=== PATIENT | female | born 1950 | race Caucasian/White ===

== ENCOUNTER 2017-06-16 16:48 | Emergency (ER) | payer OTHER ==
[~2017-06-16] VITALS: Ht 167.6 cm; Wt 70.3 kg
[~2017-06-16 16:48] MED LIST: FAMO20TA41 PO; URSO300C7 PO
--- NOTE | 2017-06-16 17:57 | NUR ---
Patient discharged to home in stable conditon. Written and verbal after care instructions given to patient. Patient verbalizes understanding of instructions. Patient wants tylenol prescription, Dr Gaitan notified.
== END 2017-06-16 18:46 | disposition home or self-care (01) ==
LOC: ER 16:50
DX: J11.1 Influenza due to unidentified influenza virus with other respiratory manifestations (principal); Z88.0 Allergy status to penicillin; Z88.5 Allergy status to narcotic agent; G43.909 Migraine, unspecified, not intractable, without status migrainosus
CPT/HCPCS: 99283; A4663

== ENCOUNTER 2018-02-21 16:53 | Emergency (ER) | payer OTHER ==
[~2018-02-21] VITALS: Ht 167.6 cm; Wt 76.2 kg
[2018-02-21] MEDS ORDERED: FAMOTIDINE 20 MG TABLET PO (17:36)
[2018-02-21 18:05] LABS: *BILIRUBIN,URIN NEGATIVE (NEGATIVE); *BLOOD, URINE Trace-intact (NEGATIVE); *CLARITY,URINE CLEAR (CLEAR); *COLOR,URINE YELLOW (YELLOW); *KETONES,URINE NEGATIVE (NEGATIVE); *PROTEIN,URINE NEGATIVE (NEGATIVE); *UROBILINOGEN,URINE 0.2 E.U./dl (NORMAL); LEUKOCYTE ESTERASE ,URINE NEGATIVE (NEGATIVE); NITRITE, URINE NEGATIVE (NEGATIVE); PH,URINE 5.5 (5.0-8.0); UGLUCOSE NEGATIVE (NEGATIVE)
[2018-02-21 18:11] LABS: BACTERIA,URINE RARE /HPF (NONE SEEN); RBC,URINE 0-3 /HPF (0-3); SQUAMOUS EPITHELIAL CELL,UR FEW /HPF (NONE SEEN)
--- NOTE | 2018-02-21 18:22 | NUR ---
Pt is sitting in bed comfortably. No s/s of respiratory distress noted. All safety needs are met. Will continue to monitor.
[2018-02-21 18:33] VITALS: BP 108/65
== END 2018-02-21 18:46 | disposition home or self-care (01) ==
LOC: ER 16:56
DX: B34.9 Viral infection, unspecified (principal); Z88.0 Allergy status to penicillin; Z88.5 Allergy status to narcotic agent; Z88.8 Allergy status to other drugs, medicaments and biological substances
CPT/HCPCS: 71045; 87086; 87400; A4663

== ENCOUNTER 2018-05-17 11:42 | Emergency (ER) | payer OTHER ==
[~2018-05-17] VITALS: Ht 167.6 cm; Wt 77.1 kg
[~2018-05-17 11:42] MED LIST changes: -FAMO20TA41 PO; +FAMOTIDINE 20 MG TABLET PO; -URSO300C7 PO
--- NOTE | 2018-05-17 13:35 | NUR ---
Patient is not found in the ER room 1A or waiting room. Patient eloped from facility. ER physician notified.
== END 2018-05-17 13:38 | disposition left against medical advice (07) ==
LOC: ER 11:42
DX: R33.9 Retention of urine, unspecified (principal); Z88.0 Allergy status to penicillin; Z88.5 Allergy status to narcotic agent; Z88.8 Allergy status to other drugs, medicaments and biological substances; Z79.899 Other long term (current) drug therapy
CPT/HCPCS: A4663

== ENCOUNTER 2018-05-17 17:24 | Emergency (ER) | payer OTHER ==
[~2018-05-17] VITALS: Ht 167.6 cm; Wt 77.1 kg
--- NOTE | 2018-05-17 17:38 | NUR ---
PT EARLIER ELOPED. WHEN CALLED NOW - PT WAS NOT IN WAITING ROOM.
--- NOTE | 2018-05-17 17:49 | NUR ---
PT IS STILL NOT IN THE WAITING ROOM.
--- NOTE | 2018-05-17 18:18 | NUR ---
Dr Gaitan is at bedside doing the MSE.
--- NOTE | 2018-05-17 18:24 | NUR ---
Patient is resting comfortably on gurney, pending MD orders@this time.
--- NOTE | 2018-05-17 18:35 | NUR ---
Patient discharged to home in stable conditon. Written and verbal after care instructions given to patient. Patient verbalizes understanding of instructions.
[2018-05-17 18:40] LABS: *BILIRUBIN,URIN NEGATIVE (NEGATIVE); *BLOOD, URINE 2+ (NEGATIVE); *CLARITY,URINE CLEAR (CLEAR); *COLOR,URINE YELLOW (YELLOW); *KETONES,URINE NEGATIVE (NEGATIVE); *UROBILINOGEN,URINE 0.2 E.U./dl (NORMAL); LEUKOCYTE ESTERASE ,URINE TRACE (NEGATIVE); NITRITE, URINE NEGATIVE (NEGATIVE); UGLUCOSE NEGATIVE (NEGATIVE)
[2018-05-17 18:41] LABS: BACTERIA,URINE FEW /HPF (NONE SEEN); SQUAMOUS EPITHELIAL CELL,UR FEW /HPF (NONE SEEN)
[2018-05-17 18:42] LABS: MUCUS,URINE FEW /LPF (0-FEW)
== END 2018-05-17 18:44 | disposition home or self-care (01) ==
LOC: ER 17:28
DX: Z46.6 Encounter for fitting and adjustment of urinary device (principal); N39.0 Urinary tract infection, site not specified; Z88.0 Allergy status to penicillin; Z88.8 Allergy status to other drugs, medicaments and biological substances; Z88.5 Allergy status to narcotic agent; Z79.899 Other long term (current) drug therapy
CPT/HCPCS: 87086; A4663

== ENCOUNTER 2018-12-19 17:51 | Emergency (ER) | payer OTHER ==
[~2018-12-19] VITALS: Ht 167.6 cm; Wt 70.3 kg
--- NOTE | 2018-12-19 18:20 | NUR ---
ADMIT PT IN RM 2A WITH C/O ABDOMENAL DISCOMFORTS. SEEN AND EXAMINED BY MD WITH DC ORDER AND A PRESCRIPTION. CONDITION IS STABLE
--- NOTE | 2018-12-19 18:50 | NUR ---
DC INSTRUCTION GIVEN WITH GOOD UNDERSTANDING. PT DISCHARGED , AMBULATED TO HOME. CONDITION IS STABLE.
[2018-12-19 19:13] VITALS: BP 129/55
== END 2018-12-19 19:05 | disposition home or self-care (01) ==
LOC: ER 17:51
DX: Z00.00 Encounter for general adult medical examination without abnormal findings (principal); R19.8 Other specified symptoms and signs involving the digestive system and abdomen; G43.909 Migraine, unspecified, not intractable, without status migrainosus; F32.9 Major depressive disorder, single episode, unspecified; Z88.0 Allergy status to penicillin; Z88.5 Allergy status to narcotic agent; Z88.8 Allergy status to other drugs, medicaments and biological substances; Z79.899 Other long term (current) drug therapy
CPT/HCPCS: A4663

== ENCOUNTER 2020-01-17 17:59 | Emergency (ER) | payer OTHER ==
[~2020-01-17] VITALS: Ht 167.6 cm; Wt 81.6 kg
[2020-01-17] MEDS ORDERED: IV NORMAL SALINE 500 ML BAG IV ONE (18:15)
[2020-01-17 18:26] LABS: EOSINOPHILS # (AUTO) 0.1 K/uL (0.0-0.7); EOSINOPHILS % (AUTO) 1.7 % (0.0-7.0); HEMATOCRIT 37.2 % (31.2-41.9); HEMOGLOBIN 12.2 g/dL (10.9-14.3); LYMPHOCYTES # (AUTO) 1.8 K/uL (20.0-40.0); LYMPHOCYTES % (AUTO) 25.1 % (20.5-51.5); MEAN CORPUSCULAR HEMOGLOBIN 29.7 uug (24.7-32.8); MEAN CORPUSCULAR HGB CONC 33 g/dL (32.3-35.6); MEAN CORPUSCULAR VOLUME 90.1 fL (75.5-95.3); MONOCYTES # (AUTO) 0.6 K/uL (2.0-10.0); MONOCYTES % (AUTO) 7.9 % (0.0-11.0); NEUTROPHILS # (AUTO) 4.7 K/uL (1.8-8.9); NEUTROPHILS % (AUTO) 64.3 % (38.5-71.5); PLATELET COUNT (AUTO) 236 K/uL (179-408); RED BLOOD CELL COUNT(AUTO) 4.13 MIL/uL (3.63-4.92); WHITE BLOOD COUNT (AUTO) 7.2 K/uL (3.8-11.8)
[2020-01-17 18:27] LABS: BASOPHILS # (AUTO) 0.1 K/uL (0.0-8.0)
[2020-01-17 18:31] LABS: CREATININE 0.9 mg/dL (0.6-1.3); POTASSIUM 3.7 mmol/L (3.5-5.1)
[2020-01-17 18:37] LABS: BILIRUBIN,DIRECT 0.1 mg/dL (0.0-0.2); BILIRUBIN,TOTAL 0.8 mg/dL (0.2-1.0); TOTAL PROTEIN, SERUM 7.2 g/dL (6.4-8.2)
[2020-01-17] MEDS ORDERED: ONDANSETRON 4 MG/2 ML VIAL IV ONE (18:45)
[2020-01-17] MEDS ORDERED: HYDROMORPHONE 1 MG/1 ML DISP.SYRIN IV ONE (18:45)
[2020-01-17] MEDS ORDERED: IV NORMAL SALINE 1000 ML BAG IV ONE (18:45)
[2020-01-17] MEDS ORDERED: FENTANYL CITRATE 100 MCG/2 ML AMPUL IV ONE (18:45)
[2020-01-17] MEDS ORDERED: ONDANSETRON 4 MG/2 ML VIAL ONE (18:47)
[2020-01-17] MEDS ORDERED: HYDROMORPHONE 1 MG/1 ML DISP.SYRIN ONE (18:47)
--- NOTE | 2020-01-17 18:54 | NUR ---
pt refuses meds at this time, requesting info on meds. monograph on meds provided for pt.
[2020-01-17] MEDS ORDERED: DICYCLOMINE HCL LIQ 10 MG/5 ML UDC PO ONE (19:15)
[2020-01-17] MEDS ORDERED: MAG HYDROX/AL HYDROX/SIMETH 30 ML LIQUID UDC PO ONE (19:15)
[2020-01-17] MEDS ORDERED: DICYCLOMINE HCL LIQ 10 MG/5 ML UDC ONE (19:20)
[2020-01-17] MEDS ORDERED: MAG HYDROX/AL HYDROX/SIMETH 30 ML LIQUID UDC ONE (19:20)
--- NOTE | 2020-01-17 19:24 | NUR ---
Patient noted refusing all pain medication at this time, continues to refuse Maalox and Bentyl and yet complains of gastric pain, MD made aware
--- NOTE | 2020-01-17 20:37 | NUR ---
Patient discharged to home in stable condition. Noted ambulating in steady manner, states abdominal pain decreased, RX given, took all belongings. Written and verbal after care instructions given. Patient verbalizes understanding of instructions. Stressed follow up or return to ER for worsening s/s.
[2020-01-17 20:43] VITALS: BP 145/55
== END 2020-01-17 20:44 | disposition home or self-care (01) ==
LOC: ER 17:59
DX: K29.70 Gastritis, unspecified, without bleeding (principal); K80.20 Calculus of gallbladder without cholecystitis without obstruction; Z88.6 Allergy status to analgesic agent; Z88.0 Allergy status to penicillin; Z86.69 Personal history of other diseases of the nervous system and sense organs; Z87.440 Personal history of urinary (tract) infections; Z86.59 Personal history of other mental and behavioral disorders; R94.31 Abnormal electrocardiogram [ECG] [EKG]
CPT/HCPCS: 36415; 70030-TC; 71045; 83690; 85025; 93005; A4663; J1170; J2405; J7030

== ENCOUNTER 2021-03-11 15:44 | Emergency (ER) | payer OTHER ==
[~2021-03-11] VITALS: Ht 167.6 cm; Wt 92.5 kg
--- NOTE | 2021-03-11 16:08 | NUR ---
Patient ambulatory gait steady to ED rm 2a,Oriented x 4, " I want my Thyroid checked" frequently tired. Long story of poor energy x3-4 years. NAD. Tolerating food fluids well.Comfort measure x 1.
[2021-03-11 16:41] LABS: HEMATOCRIT 36.8 % (31.2-41.9); MEAN CORPUSCULAR HEMOGLOBIN 30.5 uug (24.7-32.8); MEAN CORPUSCULAR VOLUME 91.3 fL (75.5-95.3); PLATELET COUNT (AUTO) 233 K/uL (179-408)
[2021-03-11 16:57] LABS: *BILIRUBIN,URIN NEGATIVE (NEGATIVE); *BLOOD, URINE NEGATIVE (NEGATIVE); *COLOR,URINE YELLOW (YELLOW); *KETONES,URINE NEGATIVE (NEGATIVE); *UROBILINOGEN,URINE 0.2 E.U./dl (NORMAL); LEUKOCYTE ESTERASE ,URINE TRACE (NEGATIVE); NITRITE, URINE NEGATIVE (NEGATIVE); UGLUCOSE NEGATIVE (NEGATIVE)
--- NOTE | 2021-03-11 17:02 | NUR ---
EKG SR with occ. PVC. on ED desk.
--- NOTE | 2021-03-11 17:03 | NUR ---
Dr Nicole bedside with patient.
[2021-03-11 17:04] LABS: CREATININE 0.8 mg/dL (0.6-1.3); POTASSIUM 3.5 mmol/L (3.5-5.1)
[2021-03-11 17:09] LABS: BILIRUBIN,DIRECT 0.1 mg/dL (0.0-0.2); BILIRUBIN,TOTAL 0.5 mg/dL (0.2-1.0); TOTAL PROTEIN, SERUM 3.9 g/dL (6.4-8.2)
[2021-03-11 17:14] LABS: *CLARITY,URINE HAZY (CLEAR); BACTERIA,URINE FEW /HPF (NONE SEEN); RBC,URINE 0-3 /HPF (0-3); SQUAMOUS EPITHELIAL CELL,UR MODERATE /HPF (NONE SEEN)
[2021-03-11] MEDS ORDERED: FAMO-132 PO (19:46)
--- NOTE | 2021-03-11 20:30 | NUR ---
Patient discharged to home in stable condition. Written and verbal after care instructions given. Patient verbalizes understanding of instructions. Stressed follow up or return to ER for worsening s/s.
[2021-03-11 21:13] VITALS: BP 130/60
== END 2021-03-11 21:14 | disposition home or self-care (01) ==
LOC: ER 15:46
DX: R53.1 Weakness (principal); Z76.0 Encounter for issue of repeat prescription; Z20.822 Contact with and (suspected) exposure to COVID-19; F32.9 Major depressive disorder, single episode, unspecified; Z88.6 Allergy status to analgesic agent; Z88.0 Allergy status to penicillin; Z88.8 Allergy status to other drugs, medicaments and biological substances; K21.9 Gastro-esophageal reflux disease without esophagitis
CPT/HCPCS: 36415; 70030-TC; 71045; 83605; 83735; 84443; 85025; 85730; 87040; 87086; 93005; A4663

== ENCOUNTER 2021-04-19 23:55 | Emergency (ER) | payer OTHER ==
[~2021-04-19] VITALS: Ht 165.1 cm; Wt 72.6 kg
[~2021-04-19 23:55] MED LIST changes: +FAMO-132 PO
--- NOTE | 2021-04-20 00:09 | NUR ---
Patient walked into ER c/o right eye discomfort that started 12hrs ago. Denies trauma to area.
--- NOTE | 2021-04-20 00:13 | NUR ---
Dr. Fields on bedside for MSE.
[2021-04-20] MEDS ORDERED: TETRACAINE HCL 0.5% OPHT DROP 2 ML BOTTLE ONE (00:28)
[2021-04-20] MEDS ORDERED: FLUORESCEIN SODIUM 1 MG STRIP ONE (00:29)
[2021-04-20] MEDS ORDERED: FLUORESCEIN SODIUM 1 MG STRIP OP ONE (00:30)
[2021-04-20] MEDS ORDERED: TETRACAINE HCL 0.5% OPHT DROP 2 ML BOTTLE OP ONE (00:30)
[2021-04-20] MEDS ORDERED: ERYT30GE8 RIGHTEYE (00:48)
[2021-04-20 00:59] VITALS: BP 140/81
--- NOTE | 2021-04-20 00:59 | NUR ---
Patient discharged to home in stable condition. Written and verbal after care instructions given. Patient verbalizes understanding of instructions. Stressed follow up or return to ER for worsening s/s. Patient ambulated fr the ER with steady gait. All belongings with patient.
== END 2021-04-20 00:59 | disposition home or self-care (01) ==
LOC: ER 04-20
DX: S05.01XA Injury of conjunctiva and corneal abrasion without foreign body, right eye, initial encounter (principal); X58.XXXA Exposure to other specified factors, initial encounter; Y92.89 Other specified places as the place of occurrence of the external cause; Z88.6 Allergy status to analgesic agent; Z88.0 Allergy status to penicillin; Z88.8 Allergy status to other drugs, medicaments and biological substances
CPT/HCPCS: A4663

== ENCOUNTER 2021-05-12 01:06 | Emergency (ER) | payer OTHER ==
[~2021-05-12] VITALS: Ht 167.6 cm; Wt 63.5 kg
[~2021-05-12 01:06] MED LIST changes: +ERYT30GE8 RIGHTEYE
--- NOTE | 2021-05-12 01:40 | NUR ---
Dr Nicole into eval patient.
[2021-05-12] MEDS ORDERED: CLIN300C12 PO (01:59)
[2021-05-12] MEDS ORDERED: ACET-2605 PO (01:59)
== END 2021-05-12 02:09 | disposition home or self-care (01) ==
LOC: ER 01:08
DX: K08.89 Other specified disorders of teeth and supporting structures (principal); Z88.5 Allergy status to narcotic agent; Z88.0 Allergy status to penicillin; Z88.8 Allergy status to other drugs, medicaments and biological substances
CPT/HCPCS: A4663

== ENCOUNTER 2021-10-06 20:47 | Emergency (ER) | payer OTHER ==
[~2021-10-06] VITALS: Ht 167.6 cm; Wt 63.5 kg
[~2021-10-06 20:47] MED LIST changes: +ACET-2605 PO; +CLIN300C12 PO
--- NOTE | 2021-10-06 21:51 | NUR ---
DR. WOOTEN AT BEDSIDE, MSE IN PROGRESS.
--- NOTE | 2021-10-06 22:07 | NUR ---
LAB AT BEDSIDE.
[2021-10-06 22:24] LABS: HEMATOCRIT 35.5 % (31.2-41.9); MEAN CORPUSCULAR HEMOGLOBIN 30.2 uug (24.7-32.8); PLATELET COUNT (AUTO) 242 K/uL (179-408)
[2021-10-06 22:36] LABS: CARBON DIOXIDE 28 mmol/L (21-32); CHLORIDE 102 mmol/L (98-107); CREATININE 0.7 mg/dL (0.6-1.3); GLUCOSE 98 mg/dL (74-106); POTASSIUM 3.5 mmol/L (3.5-5.1); UREA NITROGEN, BLOOD 23 mg/dL (7-18)
[2021-10-06 22:40] LABS: *BILIRUBIN,URIN NEGATIVE (NEGATIVE); *BLOOD, URINE NEGATIVE (NEGATIVE); *CLARITY,URINE CLEAR (CLEAR); *COLOR,URINE YELLOW (YELLOW); *KETONES,URINE NEGATIVE (NEGATIVE); *UROBILINOGEN,URINE 0.2 E.U./dl (NORMAL); LEUKOCYTE ESTERASE ,URINE NEGATIVE (NEGATIVE); NITRITE, URINE NEGATIVE (NEGATIVE); UGLUCOSE NEGATIVE (NEGATIVE)
[2021-10-06 22:43] LABS: ALANINE AMINOTRANSFERASE 28 U/L (14-59); ALKALINE PHOSPHATASE 86 U/L (50-136); ASPARTATE AMINOTRANSFERASE 18 U/L (15-37); BILIRUBIN,DIRECT 0.1 mg/dL (0.0-0.2); BILIRUBIN,TOTAL 0.6 mg/dL (0.2-1.0); TOTAL PROTEIN, SERUM 6.7 g/dL (6.4-8.2)
[2021-10-06 22:47] LABS: THYROID STIMULATING HORMONE 1.972 mIU/mL (0.358-3.740)
[2021-10-06] MEDS ORDERED: URSO300C12 PO (23:29)
[2021-10-06] MEDS ORDERED: FAMO40TA71 PO (23:29)
[2021-10-06] MEDS ORDERED: IBUP-1953 PO (23:29)
--- NOTE | 2021-10-06 23:35 | NUR ---
Patient discharged to home in stable condition. Written and verbal after care instructions given. Patient verbalizes understanding of instructions. Stressed follow up or return to ER for worsening s/s. Steady gait, denies any pain/discomfort upon discharge. No changes in LOC.
[2021-10-06 23:36] VITALS: BP 112/70
== END 2021-10-06 23:36 | disposition home or self-care (01) ==
LOC: ER 20:51
DX: R53.1 Weakness (principal); M54.10 Radiculopathy, site unspecified; Z20.822 Contact with and (suspected) exposure to COVID-19; Z88.6 Allergy status to analgesic agent; Z88.0 Allergy status to penicillin; Z88.8 Allergy status to other drugs, medicaments and biological substances; K21.9 Gastro-esophageal reflux disease without esophagitis; Z79.899 Other long term (current) drug therapy
CPT/HCPCS: 36415; 84443; 85025; 87086; 93005; A4663

== ENCOUNTER 2021-12-04 18:10 | Emergency (ER) | payer SELFPAY ==
[~2021-12-04 18:10] MED LIST changes: +FAMO40TA71 PO; +IBUP-1953 PO; +URSO300C12 PO
--- NOTE | 2021-12-04 18:28 | NUR ---
PT NOT IN WAITING ROOM WHEN CALLED FOR TRIAGE.
--- NOTE | 2021-12-04 19:10 | NUR ---
PATIENT WAS CALLED TO BE TRIAGED BUT WAS NOT PRESENT IN THE WAITING ROOM.
--- NOTE | 2021-12-04 19:20 | NUR ---
PATIENT WAS CALLED TO BE TRIAGED BUT WAS NOT PRESENT IN THE WAITING ROOM OR OUTSIDE OF ER. PATIENT WAS NOT TRIAGED OR SEEN BY ERMD.
== END 2021-12-04 19:20 | disposition left against medical advice (07) ==
LOC: ER 18:14
DX: Z53.21 Procedure and treatment not carried out due to patient leaving prior to being seen by health care provider (principal)

== ENCOUNTER 2022-08-19 22:04 | Emergency (ER) | payer OTHER ==
[~2022-08-19] VITALS: Ht 167.6 cm; Wt 63.5 kg
--- NOTE | 2022-08-19 22:16 | NUR ---
After being triaged, patient was placed back in the waiting room due to no beds avaialble in the ER.
--- NOTE | 2022-08-19 22:55 | NUR ---
Patient was called to be placed in room but was not present in the waiting room or outside of ER.
--- NOTE | 2022-08-19 23:20 | NUR ---
Patient was called to be placed in room but was not present. PATIENT WAS TRIAGED BUT WAS NOT SEEN BY ERMD.
== END 2022-08-19 23:30 | disposition left against medical advice (07) ==
LOC: ER 22:16
DX: Z53.21 Procedure and treatment not carried out due to patient leaving prior to being seen by health care provider (principal)
CPT/HCPCS: A4663

== ENCOUNTER 2023-05-04 13:40 | Emergency (ER) | payer OTHER ==
[~2023-05-04] VITALS: Ht 167.6 cm; Wt 81.6 kg
[~2023-05-04 13:40] MED LIST changes: +IBUP-1955 PO
[2023-05-04 15:23] LABS: BASOPHILS % (AUTO) 0.9 % (0.0-2.0); DIFFERENTIAL COMMENT 0; EOSINOPHILS # (AUTO) 0.1 K/uL (0.0-0.7); EOSINOPHILS % (AUTO) 3.2 % (0.0-7.0); HEMATOCRIT 39.2 % (31.2-41.9); HEMOGLOBIN 12.7 g/dL (10.9-14.3); LYMPHOCYTES # (AUTO) 1.3 K/uL (0.8-4.8); LYMPHOCYTES % (AUTO) 37.2 % (20.5-51.5); MEAN CORPUSCULAR HEMOGLOBIN 29.1 uug (24.7-32.8); MEAN CORPUSCULAR HGB CONC 33 g/dL (32.3-35.6); MEAN CORPUSCULAR VOLUME 89.7 fL (75.5-95.3); MONOCYTES # (AUTO) 0.5 K/uL (0.1-1.30); MONOCYTES % (AUTO) 13.8 % (0.0-11.0); NEUTROPHILS # (AUTO) 1.6 K/uL (1.8-8.9); NEUTROPHILS % (AUTO) 44.9 % (38.5-71.5); PLATELET COUNT (AUTO) 239 K/uL (179-408); RED BLOOD CELL COUNT(AUTO) 4.37 MIL/uL (3.63-4.92); RED CELL DISTRIBUTION WIDTH 14.4 % (12.3-17.7); WHITE BLOOD COUNT (AUTO) 3.6 K/uL (3.8-11.8)
[2023-05-04 15:25] LABS: CALCIUM 9.2 mg/dL (8.5-10.1); CARBON DIOXIDE 26 mmol/L (21-32); CHLORIDE 103 mmol/L (98-107); CREATININE 0.7 mg/dL (0.6-1.3); GLUCOSE 110 mg/dL (74-106); POTASSIUM 3.9 mmol/L (3.5-5.1); SODIUM SERUM 138 mmol/L (136-145); UREA NITROGEN, BLOOD 15 mg/dL (7-18)
[2023-05-04 15:37] LABS: ALANINE AMINOTRANSFERASE 21 U/L (14-59); ALBUMIN 3.5 g/dL (3.4-5.0); ALKALINE PHOSPHATASE 105 U/L (50-136); ASPARTATE AMINOTRANSFERASE 19 U/L (15-37); BILIRUBIN,TOTAL 0.4 mg/dL (0.2-1.0); NT-PRO BNP 76 pg/mL (0-125); TOTAL PROTEIN, SERUM 7.3 g/dL (6.4-8.2)
[2023-05-04 16:51] LABS: *BILIRUBIN,URIN NEGATIVE (NEGATIVE); *BLOOD, URINE NEGATIVE (NEGATIVE); *CLARITY,URINE CLEAR (CLEAR); *COLOR,URINE YELLOW (YELLOW); *KETONES,URINE NEGATIVE (NEGATIVE); *PROTEIN,URINE NEGATIVE (NEGATIVE); *UROBILINOGEN,URINE 0.2 E.U./dl (NORMAL); LEUKOCYTE ESTERASE ,URINE NEGATIVE (NEGATIVE); NITRITE, URINE NEGATIVE (NEGATIVE); PH,URINE 6.5 (5.0-8.0); UGLUCOSE NEGATIVE (NEGATIVE)
[2023-05-04] MEDS ORDERED: D-ME473S47 PO (17:50)
[2023-05-04] MEDS ORDERED: OSEL75CA PO (17:50)
[2023-05-04] MEDS ORDERED: IBUP-1955 PO (17:50)
[2023-05-04] MEDS ORDERED: CLIN-118 PO (17:50)
[2023-05-04] MEDS ORDERED: FAMO-132 PO (17:50)
[2023-05-04 18:05] VITALS: BP 121/61; O2SAT 98
== END 2023-05-04 18:05 | disposition home or self-care (01) ==
LOC: ER 13:41
DX: J20.9 Acute bronchitis, unspecified (principal); K08.89 Other specified disorders of teeth and supporting structures; G43.909 Migraine, unspecified, not intractable, without status migrainosus; K21.9 Gastro-esophageal reflux disease without esophagitis; R07.89 Other chest pain; Z86.2 Personal history of diseases of the blood and blood-forming organs and certain disorders involving the immune mechanism; Z88.0 Allergy status to penicillin; Z88.5 Allergy status to narcotic agent; Z88.8 Allergy status to other drugs, medicaments and biological substances; Z79.899 Other long term (current) drug therapy; Z79.1 Long term (current) use of non-steroidal anti-inflammatories (NSAID); Z20.822 Contact with and (suspected) exposure to COVID-19
CPT/HCPCS: 36415; 71045; 83605; 84484; 85025; 87040; A4606; A4663

== ENCOUNTER 2023-11-15 20:16 | Emergency (ER) | payer OTHER ==
[~2023-11-15] VITALS: Ht 167.6 cm; Wt 81.6 kg
[~2023-11-15 20:16] MED LIST changes: +CLIN-118 PO; +D-ME473S47 PO; +OSEL75CA PO
[2023-11-15] MEDS ORDERED: URSO250T3 PO (20:52)
[2023-11-15] MEDS ORDERED: FAMO40TA71 PO (20:52)
[2023-11-15] MEDS ORDERED: LIDO30AD10 TP (20:52)
[2023-11-15] MEDS ORDERED: CALC-1258 PO (20:52)
[2023-11-15] MEDS ORDERED: ACET-2030 PO (20:52)
[2023-11-15] MEDS ORDERED: FERR325T6 PO (20:52)
[2023-11-15] MEDS ORDERED: NITR-84 PO (20:52)
[2023-11-15 21:01] VITALS: BP 131/70; O2SAT 99
== END 2023-11-15 21:01 | disposition home or self-care (01) ==
LOC: ER 20:21
DX: K21.9 Gastro-esophageal reflux disease without esophagitis (principal); G43.909 Migraine, unspecified, not intractable, without status migrainosus; Z86.2 Personal history of diseases of the blood and blood-forming organs and certain disorders involving the immune mechanism; Z76.0 Encounter for issue of repeat prescription; Z88.0 Allergy status to penicillin; Z88.5 Allergy status to narcotic agent; Z88.8 Allergy status to other drugs, medicaments and biological substances; Z79.899 Other long term (current) drug therapy; Z79.1 Long term (current) use of non-steroidal anti-inflammatories (NSAID); Z79.2 Long term (current) use of antibiotics
CPT/HCPCS: A4606; A4663

== ENCOUNTER 2023-12-30 10:05 | Emergency (ER) | payer OTHER ==
[~2023-12-30] VITALS: Ht 167.6 cm; Wt 81.6 kg
[~2023-12-30 10:05] MED LIST changes: +ACET-2030 PO; +CALC-1258 PO; +FERR325T6 PO; +LIDO30AD10 TP; +NITR-84 PO; +URSO250T3 PO
[2023-12-30 10:08] VITALS: O2SAT 97
[2023-12-30 11:37] LABS: CALCIUM 8.7 mg/dL (8.5-10.1); CARBON DIOXIDE 24 mmol/L (21-32); CHLORIDE 107 mmol/L (98-107); CREATININE 0.6 mg/dL (0.6-1.3); GLUCOSE 110 mg/dL (74-106); POTASSIUM 3.9 mmol/L (3.5-5.1); SODIUM SERUM 141 mmol/L (136-145); UREA NITROGEN, BLOOD 12 mg/dL (7-18)
[2023-12-30 11:54] LABS: BASOPHILS % (AUTO) 0.8 % (0.0-2.0); EOSINOPHILS # (AUTO) 0.1 K/uL (0.0-0.7); EOSINOPHILS % (AUTO) 2.6 % (0.0-7.0); HEMATOCRIT 36.5 % (31.2-41.9); HEMOGLOBIN 11.9 g/dL (10.9-14.3); LYMPHOCYTES # (AUTO) 1.6 K/uL (0.8-4.8); LYMPHOCYTES % (AUTO) 30.4 % (20.5-51.5); MEAN CORPUSCULAR HEMOGLOBIN 29.7 uug (24.7-32.8); MEAN CORPUSCULAR HGB CONC 33 g/dL (32.3-35.6); MEAN CORPUSCULAR VOLUME 90.7 fL (75.5-95.3); MONOCYTES # (AUTO) 0.4 K/uL (0.1-1.30); MONOCYTES % (AUTO) 8.3 % (0.0-11.0); NEUTROPHILS # (AUTO) 3.1 K/uL (1.8-8.9); NEUTROPHILS % (AUTO) 57.9 % (38.5-71.5); PLATELET COUNT (AUTO) 256 K/uL (179-408); RED BLOOD CELL COUNT(AUTO) 4.02 MIL/uL (3.63-4.92); RED CELL DISTRIBUTION WIDTH 14.9 % (12.3-17.7); WHITE BLOOD COUNT (AUTO) 5.4 K/uL (3.8-11.8)
[2023-12-30 11:56] LABS: DIFFERENTIAL COMMENT 1
[2023-12-30 12:08] LABS: ALANINE AMINOTRANSFERASE 34 U/L (14-59); ALBUMIN 3.3 g/dL (3.4-5.0); ALKALINE PHOSPHATASE 129 U/L (50-136); ASPARTATE AMINOTRANSFERASE 19 U/L (15-37); BILIRUBIN,DIRECT 0.2 mg/dL (0.0-0.2); BILIRUBIN,TOTAL 0.7 mg/dL (0.2-1.0); MAGNESIUM 2.2 mg/dL (1.8-2.4); TOTAL PROTEIN, SERUM 6.7 g/dL (6.4-8.2)
[2023-12-30] MEDS ORDERED: CYANOCOBALAMIN 1000 MCG/ML VIAL ONE (13:01)
[2023-12-30] MEDS: CYANOCOBALAMIN 1000 MCG/ML VIAL IM ONE (13:24)
[2023-12-30] MEDS ORDERED: URSO300C12 PO (13:37)
[2023-12-30] MEDS ORDERED: SYRI-29 MC (13:37)
[2023-12-30] MEDS ORDERED: CYAN10006 IJ (13:37)
[2023-12-30] MEDS ORDERED: FAMO10TA41 PO (13:37)
[2023-12-30 14:27] LABS: *BILIRUBIN,URIN NEGATIVE (NEGATIVE); *BLOOD, URINE NEGATIVE (NEGATIVE); *CLARITY,URINE CLEAR (CLEAR); *COLOR,URINE YELLOW (YELLOW); *KETONES,URINE NEGATIVE (NEGATIVE); *PROTEIN,URINE NEGATIVE (NEGATIVE); LEUKOCYTE ESTERASE ,URINE TRACE (NEGATIVE); NITRITE, URINE NEGATIVE (NEGATIVE); UGLUCOSE NEGATIVE (NEGATIVE)
[2023-12-30 17:12] LABS: RBC,URINE 0-3 /HPF (0-3)
== END 2023-12-30 13:58 | disposition home or self-care (01) ==
LOC: ER 10:05
DX: K80.20 Calculus of gallbladder without cholecystitis without obstruction (principal); E53.8 Deficiency of other specified B group vitamins; K21.9 Gastro-esophageal reflux disease without esophagitis; G43.909 Migraine, unspecified, not intractable, without status migrainosus; J40 Bronchitis, not specified as acute or chronic; F32.A Depression, unspecified; Z79.1 Long term (current) use of non-steroidal anti-inflammatories (NSAID); Z79.899 Other long term (current) drug therapy; Z60.2 Problems related to living alone; Z88.0 Allergy status to penicillin; Z88.5 Allergy status to narcotic agent; Z88.1 Allergy status to other antibiotic agents
CPT/HCPCS: 99283; 80076; 80048; 81001; 82607; 83735; 85025; 36415; 96372; J3420; A4606; A4663

== ENCOUNTER 2024-06-15 10:30 | Emergency (ER) | payer OTHER ==
[~2024-06-15] VITALS: Ht 167.6 cm; Wt 54.4 kg
[~2024-06-15 10:30] MED LIST changes: +CYAN10006 IJ; +FAMO10TA41 PO; +SYRI-29 MC
[2024-06-15] MEDS ORDERED: OSEL75CA PO (11:04)
[2024-06-15] MEDS ORDERED: PROM6.2516 PO (11:04)
[2024-06-15] MEDS ORDERED: KETOROLAC TROMETHAMINE 15 MG INJ ONE (11:24)
[2024-06-15] MEDS: KETOROLAC TROMETHAMINE 15 MG INJ IM ONE (11:27)
[2024-06-15 11:31] VITALS: BP 127/69; TEMP 98.3; O2SAT 97
== END 2024-06-15 11:31 | disposition home or self-care (01) ==
LOC: ER 10:30
DX: J06.9 Acute upper respiratory infection, unspecified (principal); R05.9 Cough, unspecified; K21.9 Gastro-esophageal reflux disease without esophagitis; Z79.1 Long term (current) use of non-steroidal anti-inflammatories (NSAID); Z60.2 Problems related to living alone; Z88.0 Allergy status to penicillin; Z88.5 Allergy status to narcotic agent; Z88.7 Allergy status to serum and vaccine
CPT/HCPCS: 99283; 87804 ×2; 96372; J1885; A4606; A4663

== ENCOUNTER 2024-06-27 18:50 | Emergency (ER) | payer OTHER ==
[~2024-06-27] VITALS: Ht 167.6 cm; Wt 59.0 kg
[~2024-06-27 18:50] MED LIST changes: +PROM6.2516 PO
[2024-06-27 23:27] LABS: BASOPHILS # (AUTO) 0.1 K/UL (0.0-0.2); BASOPHILS % (AUTO) 0.9 % (0.0-2.0); EOSINOPHILS # (AUTO) 0.1 K/uL (0.0-0.7); EOSINOPHILS % (AUTO) 2.3 % (0.0-7.0); HEMATOCRIT 34.9 % (31.2-41.9); HEMOGLOBIN 11.7 g/dL (10.9-14.3); LYMPHOCYTES # (AUTO) 2.1 K/uL (0.8-4.8); LYMPHOCYTES % (AUTO) 36.7 % (20.5-51.5); MEAN CORPUSCULAR HEMOGLOBIN 30.1 uug (24.7-32.8); MEAN CORPUSCULAR HGB CONC 34 g/dL (32.3-35.6); MEAN CORPUSCULAR VOLUME 89.7 fL (75.5-95.3); MONOCYTES # (AUTO) 0.6 K/uL (0.1-1.30); MONOCYTES % (AUTO) 9.6 % (0.0-11.0); NEUTROPHILS % (AUTO) 50.5 % (38.5-71.5); PLATELET COUNT (AUTO) 284 K/uL (179-408); RED BLOOD CELL COUNT(AUTO) 3.89 MIL/uL (3.63-4.92); RED CELL DISTRIBUTION WIDTH 13.9 % (12.3-17.7); WHITE BLOOD COUNT (AUTO) 5.8 K/uL (3.8-11.8)
[2024-06-27 23:29] LABS: DIFFERENTIAL COMMENT 1
[2024-06-27 23:34] LABS: CALCIUM 9.2 mg/dL (8.5-10.1); CARBON DIOXIDE 27 mmol/L (21-32); CHLORIDE 107 mmol/L (98-107); CREATININE 0.7 mg/dL (0.6-1.3); GLUCOSE 100 mg/dL (74-106); POTASSIUM 3.8 mmol/L (3.5-5.1); SODIUM SERUM 142 mmol/L (136-145); UREA NITROGEN, BLOOD 11 mg/dL (7-18)
[2024-06-27] MEDS ORDERED: KETOROLAC TROMETHAMINE 30 MG INJ ONE (23:34)
[2024-06-27] MEDS: KETOROLAC TROMETHAMINE 30 MG INJ IM ONE (23:38)
[2024-06-27 23:42] LABS: ALANINE AMINOTRANSFERASE 27 U/L (14-59); ALBUMIN 3.3 g/dL (3.4-5.0); ALKALINE PHOSPHATASE 117 U/L (50-136); ASPARTATE AMINOTRANSFERASE 13 U/L (15-37); BILIRUBIN,DIRECT 0.1 mg/dL (0.0-0.2); BILIRUBIN,TOTAL 0.5 mg/dL (0.2-1.0); TOTAL PROTEIN, SERUM 6.9 g/dL (6.4-8.2)
[2024-06-28 04:10] VITALS: BP 99/75; TEMP 208.4; O2SAT 98
[2024-06-28] MEDS ORDERED: FAMO20TA8 PO (04:37)
[2024-06-28] MEDS ORDERED: PROM118S5 PO (04:37)
== END 2024-06-28 04:10 | disposition home or self-care (01) ==
LOC: ER 18:50
DX: R07.89 Other chest pain (principal); R05.9 Cough, unspecified; R94.31 Abnormal electrocardiogram [ECG] [EKG]; K21.9 Gastro-esophageal reflux disease without esophagitis; F32.A Depression, unspecified; G43.909 Migraine, unspecified, not intractable, without status migrainosus; Z79.1 Long term (current) use of non-steroidal anti-inflammatories (NSAID); Z88.0 Allergy status to penicillin; Z88.5 Allergy status to narcotic agent; Z88.7 Allergy status to serum and vaccine; Z88.8 Allergy status to other drugs, medicaments and biological substances; Z86.79 Personal history of other diseases of the circulatory system; Z87.09 Personal history of other diseases of the respiratory system; Z87.39 Personal history of other diseases of the musculoskeletal system and connective tissue
CPT/HCPCS: 99285; 71045; 80076; 80048; 85025; 85379; 84484 ×2; 36415 ×2; 93005; 96372; J1885; A4606; A4663

== ENCOUNTER 2024-12-21 23:22 | Emergency (ER) | payer MEDICARE, OTHER ==
[~2024-12-21] VITALS: Ht 167.6 cm; Wt 72.6 kg
[~2024-12-21 23:22] MED LIST changes: +FAMO20TA8 PO; +PROM118S5 PO
[2024-12-21 23:50] VITALS: O2SAT 0
[2024-12-22] MEDS ORDERED: ACETAMINOPHEN 500 MG TABLET ONE (00:18)
[2024-12-22] MEDS ORDERED: NAPROXEN 500 MG TABLET ONE (00:18)
[2024-12-22] MEDS ORDERED: ACET-3102 PO (00:27)
[2024-12-22] MEDS ORDERED: IBUP-1955 PO (00:27)
[2024-12-22] MEDS: NAPROXEN 500 MG TABLET PO ONE (00:30)
[2024-12-22] MEDS: ACETAMINOPHEN 500 MG TABLET PO ONE (00:30)
[2024-12-22] MEDS ORDERED: FAMOTIDINE 20 MG TABLET ONE (00:36)
[2024-12-22] MEDS: FAMOTIDINE 20 MG TABLET PO ONE (00:37)
[2024-12-22] MEDS: URSODIOL 300 MG CAPSULE PO STA (00:38)
[2024-12-22] MEDS ORDERED: URSO250T3 PO (00:51)
== END 2024-12-22 00:59 | disposition home or self-care (01) ==
LOC: ER 23:37
DX: M79.603 Pain in arm, unspecified (principal); G43.909 Migraine, unspecified, not intractable, without status migrainosus; F32.A Depression, unspecified; K21.9 Gastro-esophageal reflux disease without esophagitis; Z87.39 Personal history of other diseases of the musculoskeletal system and connective tissue; Z79.1 Long term (current) use of non-steroidal anti-inflammatories (NSAID); Z88.0 Allergy status to penicillin; Z88.5 Allergy status to narcotic agent; Z88.7 Allergy status to serum and vaccine; Z60.2 Problems related to living alone; Z86.79 Personal history of other diseases of the circulatory system; Z87.09 Personal history of other diseases of the respiratory system
CPT/HCPCS: 73030; A4606; A4663; A9150